=== PATIENT | male | born 1995 | race Caucasian/White ===

== ENCOUNTER 2017-02-11 14:18 | Emergency (ER) | payer BC ==
[~2017-02-11] VITALS: Ht 182.9 cm; Wt 73.9 kg
[2017-02-11 14:23] VITALS: Ht 182.9 cm; Wt 73.9 kg
[2017-02-11] MEDS ORDERED: SODIUM CHLORIDE 0.9% 1000ML 2,000 ML IV STA (14:42)
[2017-02-11] MEDS ORDERED: ONDANSETRON INJ 2 MG/ML 2 ML VIAL IV STA (14:42)
[2017-02-11] MEDS ORDERED: KETOROLAC TROMETHAMINE 30 MG/ML VIAL IV STA (14:42)
[2017-02-11] MEDS ORDERED: LISD40CA PO (15:09)
--- NOTE | 2017-02-11 15:11 | DIAGNOSTIC IMAGING REPORT ---
CT SCAN OF THE BRAIN WITHOUT IV CONTRAST CLINICAL HISTORY: Weakness. Blurry vision. COMPARISON STUDY: No priors. TECHNIQUE: Unenhanced axial CT scan of the brain is performed from the vertex to the skull base. A dose lowering technique was utilized adhering to the principles of ALARA. CT DOSE: 638.56 mGycm FINDINGS: Brain parenchyma: The brain parenchyma is normal in appearance. There is no hemorrhage, mass effect, or evidence of acute territorial ischemia by CT criteria. Cooper-white matter is preserved. No extra-axial fluid collection is seen. Ventricles, sulci, cisterns: Normal in configuration. Intracranial vasculature: The visualized intracranial vasculature at the skull base is normal in appearance. Calvarium: Unremarkable. Sinuses and mastoids: The visualized paranasal sinuses are clear. The mastoid air cells are well pneumatized. Orbits: The bony orbits are grossly intact. IMPRESSION: No acute intracranial abnormality. Electronically signed by: Mike Kearney M.D. 02/11/2017 3:10 PM Dictated Date/Time: 02/11/2017 3:07 PM
--- NOTE | 2017-02-11 15:24 | DIAGNOSTIC IMAGING REPORT ---
CHEST ONE VIEW PORTABLE CLINICAL HISTORY: cough dyspnea COMPARISON STUDY: No previous studies for comparison. FINDINGS: The bones soft tissues and hemidiaphragms are normal. The cardiomediastinal silhouette is normal. The lungs are clear. The pulmonary vasculature is normal. IMPRESSION: Negative chest. The above report was generated using voice recognition software. It may contain grammatical, syntax or spelling errors. Electronically signed by: Javi Cash M.D. 02/11/2017 3:22 PM Dictated Date/Time: 02/11/2017 3:22 PM
[2017-02-11 15:31] LABS: BASO % 0.3 %; BASO ABS # 0.05 K/uL (0-0.2); COMPLETE YES; EOS % 0.1 %; HEMATOCRIT 44.5 % (42-52); IG% 0.3 %; LYMPH % 7.4 %; LYMPH ABS # 1.45 K/uL (1.2-3.4); MEAN CELL VOLUME 87.3 fL (80-100); MEAN CORPUSCULAR HEMOGLOBIN 30.6 pg (25-34); MEAN CORPUSCULAR HGB CONC 35.1 g/dl (32-36); MEAN PLATELET VOLUME 10.3 fL (7.4-10.4); MONO % 6.7 %; NEUT % 85.2 %; PLATELET COUNT 233 K/uL (130-400); WHITE BLOOD COUNT 19.68 K/uL (4.8-10.8)
[2017-02-11 15:51] LABS: BUN/CREATININE RATIO 15.6 (10-20); CALCIUM 9.5 mg/dl (8.5-10.1); CREATININE 1.27 mg/dl (0.60-1.40); POTASSIUM 3.8 mmol/L (3.5-5.1)
[2017-02-11 16:12] LABS: MANUAL MICROSCOPIC REQUIRED? NO; REVIEW REQ? NO; URINE APPEARANCE CLEAR (CLEAR); URINE BILIRUBIN NEG (NEG); URINE COLOR YELLOW; URINE EPITHELIAL CELL AUTO 0-5 /lpf (0-5); URINE NITRITE NEG (NEG); URINE PH 6.5 (4.5-7.5); URINE SPECIFIC GRAVITY 1.018 (1.000-1.030); UROBILINOGEN NEG (NEG); ZZUR CULT IF INDIC CLEAN CATCH NO
[2017-02-11 17:35] VITALS: BP 121/71; PULSE 77; TEMP 36.7; O2SAT 99
--- NOTE | 2017-02-11 18:52 | EMERGENCY ROOM VISIT NOTE ---
History Report prepared by Andre: Juan Mejia Under the Supervision of: Dr. Keny Mercedes D.O. First contact with patient: 14:32 Chief Complaint: FEVER Stated Complaint: FEVER,CONGESTION History of Present Illness The patient is a 21 year old male who presents to the Emergency Room with complaints of a fever that began this morning. When he woke up this morning, he felt warm and believed that he had a fever. He did not take him temperature. He took [employer] and went to class. While he was in class he began to feel very "out of it." He is currently congested and very lightheaded. He denies any cough , rhinorrhea, sore throat, abdominal pain, nausea, vomiting, diarrhea, headache , ear pain, abnormal urinary symptoms, or muscle aches. He denies any known medical problems. Patient has no significant past medical history. Source of History: patient Onset: this morning Position: other (global) Symptom Intensity: Subjective Quality: other (Fever) Timing: constant Associated Symptoms: No sorethroat, No cough, No nausea, No vomiting, No abdominal pain, No diarrhea, No urinary symptoms Note: He is currently lightheaded and congested. Review of Systems See HPI for pertinent positives & negatives. A total of 10 systems reviewed and were otherwise negative. Past Medical & Surgical Medical Problems: (1) No Known Active Medical Problems Family History FH: heart disease Hypertension Social History Smoking Status: Never Smoker Smokeless Tobacco Use: No Drug Use: none Marital Status: single Housing Status: lives with roommate Occupation Status: student Current/Historical Medications Scheduled Lisdexamfetamine Dimesylate (Vyvanse), 40 MG PO DAILY Allergies Coded Allergies: No Known Allergies (Unverified , 02/11/17) Physical Exam Vital Signs Date Time Temp Pulse Resp B/P (MAP) Pulse Ox O2 Delivery O2 Flow Rate FiO2 02/11/17 17:35 36.7 77 16 121/71 99 02/11/17 16:26 74 16 110/68 99 Room Air 02/11/17 14:23 36.4 84 18 174/99 97 Room Air Physical Exam GENERAL: Sitting up in bed, alert, well appearing, well nourished, no distress, non-toxic EYE EXAM: normal conjunctiva. PERRL and EOM's intact. EAR EXAM: TM's clear bilaterally. OROPHARYNX: no exudate, no erythema, lips, buccal mucosa, and tongue normal and mucous membranes are moist NECK: supple, no nuchal rigidity, no adenopathy, non-tender LUNGS: Clear to auscultation. Normal chest wall mechanics HEART: no murmurs, S1 normal and S2 normal ABDOMEN: abdomen soft, non-tender, normo-active bowel sounds, no masses, no rebound or guarding. BACK: Back is symmetrical on inspection and there is no deformity, no midline tenderness, no CVA tenderness. SKIN: no rashes and no bruising UPPER EXTREMITIES: upper extremities are grossly normal. LOWER EXTREMITIES: No pitting edema. NEURO EXAM: Normal sensorium, cranial nerves II-XII intact, normal speech, no weakness of arms, no weakness of legs. No drift. Finger to nose intact. Gross sensation intact. Medical Decision & Procedures ER Provider Diagnostic Interpretation: Radiology results as stated below per my review and the radiologist's interpretation: CT SCAN OF THE BRAIN WITHOUT IV CONTRAST CLINICAL HISTORY: Weakness. Blurry vision. COMPARISON STUDY: No priors. TECHNIQUE: Unenhanced axial CT scan of the brain is performed from the vertex to the skull base. A dose lowering technique was utilized adhering to the principles of ALARA. CT DOSE: 638.56 mGycm FINDINGS: Brain parenchyma: The brain parenchyma is normal in appearance. There is no hemorrhage, mass effect, or evidence of acute territorial ischemia by CT criteria. Cooper-white matter is preserved. No extra-axial fluid collection is seen. Ventricles, sulci, cisterns: Normal in configuration. Intracranial vasculature: The visualized intracranial vasculature at the skull base is normal in appearance. Calvarium: Unremarkable. Sinuses and mastoids: The visualized paranasal sinuses are clear. The mastoid air cells are well pneumatized. Orbits: The bony orbits are grossly intact. IMPRESSION: No acute intracranial abnormality. Electronically signed by: Mike Kearney M.D. 02/11/2017 3:10 PM Dictated Date/Time: 02/11/2017 3:07 PM CHEST ONE VIEW PORTABLE CLINICAL HISTORY: cough dyspnea COMPARISON STUDY: No previous studies for comparison. FINDINGS: The bones soft tissues and hemidiaphragms are normal. The cardiomediastinal silhouette is normal. The lungs are clear. The pulmonary vasculature is normal. IMPRESSION: Negative chest. The above report was generated using voice recognition software. It may contain grammatical, syntax or spelling errors. Electronically signed by: Javi Cash M.D. 02/11/2017 3:22 PM Dictated Date/Time: 02/11/2017 3:22 PM Laboratory Results 02/11/17 14:52 Red Blood Count 5.10, Mean Corpuscular Volume 87.3, Mean Corpuscular Hemoglobin 30.6, Mean Corpuscular Hemoglobin Concent 35.1, Mean Platelet Volume 10.3, Neutrophils (%) (Auto) 85.2, Lymphocytes (%) (Auto) 7.4, Monocytes (%) (Auto) 6.7, Eosinophils (%) (Auto) 0.1, Basophils (%) (Auto) 0.3, Neutrophils # (Auto) 16.79, Lymphocytes # (Auto) 1.45, Monocytes # (Auto) 1.32, Eosinophils # (Auto) 0.02, Basophils # (Auto) 0.05 02/11/17 14:52 Test 02/11/17 14:52 02/11/17 16:27 White Blood Count 19.68 K/uL (4.8-10.8) Red Blood Count 5.10 M/uL (4.7-6.1) Hemoglobin 15.6 g/dL (14.0-18.0) Hematocrit 44.5 % (42-52) Mean Corpuscular Volume 87.3 fL (80-100) Mean Corpuscular Hemoglobin 30.6 pg (25-34) Mean Corpuscular Hemoglobin Concent 35.1 g/dl (32-36) Platelet Count 233 K/uL (130-400) Mean Platelet Volume 10.3 fL (7.4-10.4) Neutrophils (%) (Auto) 85.2 % Lymphocytes (%) (Auto) 7.4 % Monocytes (%) (Auto) 6.7 % Eosinophils (%) (Auto) 0.1 % Basophils (%) (Auto) 0.3 % Neutrophils # (Auto) 16.79 K/uL (1.4-6.5) Lymphocytes # (Auto) 1.45 K/uL (1.2-3.4) Monocytes # (Auto) 1.32 K/uL (0.11-0.59) Eosinophils # (Auto) 0.02 K/uL (0-0.5) Basophils # (Auto) 0.05 K/uL (0-0.2) RDW Standard Deviation 40.8 fL (36.4-46.3) RDW Coefficient of Variation 12.7 % (11.5-14.5) Immature Granulocyte % (Auto) 0.3 % Immature Granulocyte # (Auto) 0.05 K/uL (0.00-0.02) Urine Color YELLOW Urine Appearance CLEAR (CLEAR) Urine pH 6.5 (4.5-7.5) Urine Specific [place] 1.018 (1.000-1.030) Urine Protein NEG (NEG) Urine Glucose (UA) NEG (NEG) Urine Ketones NEG (NEG) Urine Occult Blood NEG (NEG) Urine Nitrite NEG (NEG) Urine Bilirubin NEG (NEG) Urine Urobilinogen NEG (NEG) Urine Leukocyte Esterase NEG (NEG) Urine WBC (Auto) 0 /hpf (0-5) Urine RBC (Auto) 0-4 /hpf (0-4) Urine Hyaline Casts (Auto) 0 /lpf (0-5) Urine Epithelial Cells (Auto) 0-5 /lpf (0-5) Urine Bacteria (Auto) NEG (NEG) Anion Gap 10.0 mmol/L (3-11) Est Creatinine Clear Calc Drug Dose 97.8 ml/min Estimated GFR () 94.3 Estimated GFR (Non- 81.4 BUN/Creatinine Ratio 15.6 (10-20) Calcium Level 9.5 mg/dl (8.5-10.1) Total Bilirubin 1.2 mg/dl (0.2-1) Direct Bilirubin 0.3 mg/dl (0-0.2) Aspartate Amino Transf (AST/SGOT) 27 U/L (15-37) Alanine Aminotransferase (ALT/SGPT) 37 U/L (12-78) Alkaline Phosphatase 77 U/L (45-117) Total Protein 7.7 gm/dl (6.4-8.2) Albumin 4.6 gm/dl (3.4-5.0) Lipase 135 U/L (73-393) Influenza Type A Antigen Neg for Influ A (NEG) Influenza Type B Antigen Neg for Influ B (NEG) Laboratory results per my review. ED Course ED COURSE: Vital signs were reviewed and showed hypertension. The patients medical record was reviewed The above diagnostic studies were performed and reviewed. ED treatments and interventions as stated above. 1432: The patient was evaluated in room C3. A complete history and physical examination was performed. 1442: Ordered Toradol Inj 30 mg IV, Zofran Inj 4 mg IV, Sodium Chloride 2000 ml @ 999 mls/hr IV 1516: The patient has refused further treatment and would like something to drink. 1630: He is feeling better without headache, chest pain, shortness of breath, nausea, vomiting, or diarrhea. 1711: The patient refused a visual acuity exam earlier, and refused it again. He refused all medications and says he feels better. 1735: Upon reevaluation, the patient is resting. I discussed my findings with the patient and he understands and agrees with the treatment plan. Based on the patients age, coexisting illnesses, exam and lab findings the decision to treat as an outpatient was made. The patient remained stable while under my care. The patient appeared well at the time of discharge. Medical Decision Differential Diagnosis includes but is not limited to dehydration, stroke, anemia, hypoglycemia, hyponatremia, hypernatremia, urinary tract infection, pneumonia, bronchitis, sepsis, gastroenteritis, additional abdominal pathology, metabolic abnormalities and infections. Patient is a 21-year-old male who presents to ER feeling very lightheaded and congestion nasally. He denies any headache or neck pain. No weakness or numbness in arms or legs. No cough, chest pain or shortness breath. No abdominal pain or dysuria. No other symptoms. Patient's completely neurologically intact. CT head was performed as he felt very lightheaded. Chest x-ray was unremarkable. CBC shows a leukocytosis. BMP all LFTs was unremarkable and lipase. T bili is slightly elevated at 1.2. He has absolutely no belly pain. UA was negative. Influenza was negative. Patient declined fluids and any, medications. Once he started feeling better he requests to be discharged. I updated him in regards to his lupus dose. Stressed importance of following up tomorrow. No signs meningitis or encephalitis on exam. No signs of UTI. Nothing to suggest an upper respiratory or abdominal process. Discussed with Pt concerning signs and symptoms to watch out for. Pt was instructed to follow up with their PCP and discussed with the patient their option to return to the ED at anytime for persistent or worsening symptoms. The appropriate anticipatory guidance and out- patient management, including indications for return to the emergency department , were explained at length to the patient and understood. Medication Reconcilliation Current Medication List: was personally reviewed by me Blood Pressure Screening Blood pressure disposition: Elevated BP felt to be situational (Back to normal at discharge) Impression Primary Impression: Congestion of upper airway Scribe Attestation The scribe's documentation has been prepared under my direction and personally reviewed by me in its entirety. I confirm that the note above accurately reflects all work, treatment, procedures, and medical decision making performed by me. Departure Information Dispostion Home / Self-Care Referrals No Doctor, Assigned (PCP) Forms HOME CARE DOCUMENTATION FORM, IMPORTANT VISIT INFORMATION Patient Instructions ED URI Viral, [facility] Additional Instructions Please follow up with your primary care doctor or if you are a student, [facility] with in the next 24 hours. Any worsening of your symptoms, please return to the ED immediately. This includes any fevers greater than 100.4, worsening pain, chest pain, shortness breath, persistent nausea, vomiting, unable to eat or drink, or any other concerning signs or symptoms from your standpoint.
== END 2017-02-11 17:38 | disposition home or self-care (01) ==
LOC: C.EDB 14:21 → C.EDC 17:38
DX: R09.89 Other specified symptoms and signs involving the circulatory and respiratory systems (principal); Z82.49 Family history of ischemic heart disease and other diseases of the circulatory system